=== PATIENT | male | born 1975 | race Caucasian/White ===

== ENCOUNTER 2017-02-26 20:57 | Emergency (ER) | payer OTHER ==
[~2017-02-26] VITALS: Ht 182.9 cm; Wt 150.0 kg
[2017-02-26] MEDS ORDERED: LISI-662 PO (21:05)
[2017-02-26] MEDS ORDERED: HYDR25TA PO (21:05)
[2017-02-26 22:15] VITALS: BP 134/89
== END 2017-02-26 22:23 | disposition home or self-care (01) ==
LOC: EMS 20:59
DX: S93.402A Sprain of unspecified ligament of left ankle, initial encounter (principal); I10 Essential (primary) hypertension; F17.210 Nicotine dependence, cigarettes, uncomplicated; X50.1XXA Overexertion from prolonged static or awkward postures, initial encounter; Y93.01 Activity, walking, marching and hiking; Y92.89 Other specified places as the place of occurrence of the external cause; Y99.8 Other external cause status
CPT/HCPCS: 99284

== ENCOUNTER 2017-04-08 06:55 | Emergency (ER) | payer OTHER ==
[~2017-04-08] VITALS: Ht 182.9 cm; Wt 147.3 kg
[~2017-04-08 06:55] MED LIST: HYDR25TA PO; LISI-662 PO
[2017-04-08 06:56] VITALS: BP 155/97
== END 2017-04-08 08:59 | disposition home or self-care (01) ==
LOC: EMS 06:56
DX: S39.012A Strain of muscle, fascia and tendon of lower back, initial encounter (principal); I10 Essential (primary) hypertension; F17.210 Nicotine dependence, cigarettes, uncomplicated; Z71.6 Tobacco abuse counseling; Z79.899 Other long term (current) drug therapy; X58.XXXA Exposure to other specified factors, initial encounter; Y93.89 Activity, other specified; Y92.89 Other specified places as the place of occurrence of the external cause; Y99.8 Other external cause status
CPT/HCPCS: 99283; 99406